=== PATIENT | female | born 2000 | race African-American/Black ===

== ENCOUNTER 2019-01-26 15:00 | Inpatient (IN) ==
[2019-01-26] MEDS ORDERED: BUTORPHANOL 2 MG/ML VIAL IV PRN (15:20)
[2019-01-26] MEDS ORDERED: TERBUTALINE 1 MG/1 ML VIAL SUBCUT PRN (15:20)
[2019-01-26] MEDS ORDERED: LIDOCAINE 1% 50 ML VIAL MISC INJ ONE (15:20)
[2019-01-26] MEDS ORDERED: MEPERIDINE 50 MG/1 ML VIAL IM PRN (15:20)
[2019-01-26] MEDS ORDERED: ONDANSETRON 4 MG/2 ML VIAL IV PRN (15:20)
[2019-01-26 15:44] LABS: Basophils % 0.2 % (0.0-0.8); Eosinophils % 0.1 % (0.00-10.9); Hematocrit 30.9 VOL% (35.7-47.0); Hemoglobin 9.8 GM/DL (12.0-16.0); Immature Granulocytes % 0.4 %; Immature Granulocytes Absolute 0.04 #; Lymphocytes # 1.7 10*3/uL (1.4-4.0); Lymphocytes % 17.1 % (21.3-54.2); Mean Corpuscular HGB Conc 31.7 GM/DL (32-36); Mean Corpuscular Volume 79.8 FL (87-102); Monocytes % 5.4 % (1.7-12.7); Neutrophils % 76.8 % (38.7-73.9); Platelet Count 232 T/CUMM (130-400); Red Blood Count 3.87 MC/CUMM (3.8-5.5); Red Cell Distribution Width 15.3 % (9.3-17.3); White Blood Count 9.9 T/CUMM (4-12)
[2019-01-26 16:00] LABS: Albumin 2.8 G/DL (3.4-5.0); Bilirubin,Total 0.5 MG/DL (0.2-1.0); Calcium 8.5 MG/DL (8.5-10.1); Osmolality,Calculated 273.5 MOS/KG (273-304); Total Protein 7.2 G/DL (6.4-8.3); Uric Acid 5.2 MG/DL (2.6-6.0)
[2019-01-26] MEDS ORDERED: DINOPROSTONE VAG GEL 10 MG SYRINGE VAG ONE (16:00)
[2019-01-26] MEDS: LACTATED RINGERS 1,000 ML IV SCH ×2 (16:20→21:51)
[2019-01-26] MEDS ORDERED: MEPERIDINE 50 MG/1 ML VIAL IV PRN (21:08)
[2019-01-26] MEDS ORDERED: hydrOXYzine HCL 25 MG/1 ML VIAL IM PRN (21:23)
[2019-01-26] MEDS ORDERED: NALOXONE 0.4 MG/ML VIAL IV PRN (21:23)
[2019-01-26] MEDS ORDERED: diphenhydrAMINE 50 MG/1 ML VIAL IV PRN ×2 (21:23)
[2019-01-26] MEDS ORDERED: ePHEDrine 50 MG/ML AMP IV PRN (21:23)
[2019-01-26] MEDS ORDERED: CITRIC ACID/SODIUM CITRATE 30 ML UDCUP PO ONE (21:25)
[2019-01-26] MEDS ORDERED: FAMOTIDINE 20 MG/2 ML VIAL IV ONE (21:25)
[2019-01-26] MEDS ORDERED: fentaNYL 2 MCG/ROPIV 0.2% EPID 100 ML EPIDURAL SCH (21:30)
[2019-01-26 22:44] LABS: Apearance,Urine CLEAR (Clear); Bilirubin,Urine Negative (Negative); Blood, Urine Negative (Negative); Glucose,Urine (UA) Negative (Negative); Hyaline Casts,Urine 1 /LPF (0-3); Ketones,Urine 20 mg/dL (Negative); Nitrite,Urine Negative (Negative); Protein,Urine Negative; RBC,Urine <1 /HPF (0-4); Renal Epithelial Cells,Urine Occasional /HPF (<1); Squamous Epithelial Cell,Urine Occasional /HPF (0-10); Urine Color Yellow (Yellow); Urine Specific Gravity 1.008 (1.001-1.035); Urine Urobilinogen < 2.0 EU/DL (0.2-1.0); WBC,Urine 1 /HPF (0-6)
[2019-01-27] MEDS ORDERED: OXYTOCIN/LR 20 UNIT/1,000 ML BAG IV SCH (02:00)
[2019-01-27] MEDS: LACTATED RINGERS 1,000 ML IV SCH (03:50)
[2019-01-27] MEDS ORDERED: OXYTOCIN/LR 0 UNIT/0 ML BAG IV ONE (06:13)
[2019-01-27] MEDS ORDERED: miSOPROStol 200 MCG TABLET ONE ×2 (06:13→06:57)
[2019-01-27] MEDS ORDERED: TRANEXAMIC ACID 1,000 MG/10 ML VIAL ONE (06:13)
[2019-01-27] MEDS ORDERED: METHYLERGONOVINE 0.2 MG/1 ML AMP ONE ×2 (06:13→06:57)
[2019-01-27] MEDS ORDERED: CARBOPROST TROMETHAMINE 250 MCG/ML AMP IM ONE (06:14)
[2019-01-27] MEDS ORDERED: OXYTOCIN/LR 30 UNIT/1,000 ML BAG IV ONE (07:16)
[2019-01-27 07:46] LABS: Cord Venous Blood HCO3 22.8 MMOL/L; Cord Venous Blood PCO2 43.5 MMHG; Cord Venous Blood PO2 30.2
[2019-01-27] MEDS ORDERED: ACETAMINOPHEN 325 MG TABLET PO PRN (09:08)
[2019-01-27] MEDS ORDERED: DIPH/TET/ACEL PERT BOOSTER VACCINE 0.5 ML VIAL IM ONE (09:08)
[2019-01-27] MEDS ORDERED: HYDROCORTISONE 2.5% RECTAL CREAM 30 GM TUBE TOP PRN (09:08)
[2019-01-27] MEDS ORDERED: BISACODYL 10 MG SUPP RECTAL PRN (09:08)
[2019-01-27] MEDS ORDERED: LANOLIN 50% CREAM 0.3 OZ TUBE TOP PRN (09:08)
[2019-01-27] MEDS ORDERED: BENZOCAINE 20%/MENTHOL 0.5% SPRAY 56 GM CAN TOP PRN (09:08)
[2019-01-27] MEDS ORDERED: oxyCODONE/ACETAMINOPHEN 5-325 MG TABLET PO PRN ×2 (09:08)
[2019-01-27] MEDS ORDERED: MEASLES/MUMPS/RUBELLA VACCINE 0.5 ML VIAL SUBCUT ONE (09:08)
[2019-01-27] MEDS ORDERED: IBUPROFEN 800 MG TABLET PO PRN (09:08)
[2019-01-27] MEDS ORDERED: RHO(D) IMMUNE GLOBULIN 300 MCG SYRINGE IM ONE (09:08)
[2019-01-27] MEDS ORDERED: WITCH HAZEL PADS 100/JAR TOP PRN (09:08)
[2019-01-27] MEDS: DOCUSATE SODIUM 100 MG CAPSULE PO SCH (21:47)
[2019-01-28 04:57] LABS: Basophils % 0.1 % (0.0-0.8); Eosinophils # 0.1 10*3/uL (0.0-0.87); Eosinophils % 0.7 % (0.00-10.9); Hemoglobin 10.1 GM/DL (12.0-16.0); Immature Granulocytes % 0.7 %; Lymphocytes # 2.3 10*3/uL (1.4-4.0); Mean Corpuscular HGB Conc 31.6 GM/DL (32-36); Mean Corpuscular Volume 79.6 FL (87-102); Mean Platelet Volume 12.2 FL (9.6-12.0); Monocytes % 7.4 % (1.7-12.7); Neutrophils % 76.1 % (38.7-73.9); Platelet Count 211 T/CUMM (130-400); Red Blood Count 4.02 MC/CUMM (3.8-5.5); Red Cell Distribution Width 15.3 % (9.3-17.3); White Blood Count 15.2 T/CUMM (4-12)
[2019-01-28] MEDS: DOCUSATE SODIUM 100 MG CAPSULE PO SCH ×2 (09:21→20:50)
[2019-01-29 13:01] VITALS: BP 110/62
[2019-01-29] MEDS: DOCUSATE SODIUM 100 MG CAPSULE PO SCH (16:06)
== END 2019-01-29 15:15 | disposition home or self-care (01) | DRG 560 ==
LOC: N.LD 15:00 → N.OB 01-27 11:05
PROVIDERS: ADMIT Obstetrics & Gynecology; ATTEND Obstetrics & Gynecology